=== PATIENT | male | born 1980 | race Hispanic/Latino ===

== ENCOUNTER 2021-01-24 09:22 | Emergency (ER) | payer OTHER ==
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
[2021-01-24 10:19] VITALS: TEMP 98.3
[2021-01-24 10:20] VITALS: BP 150/93; O2SAT 99
== END 2021-01-24 10:14 | disposition home or self-care (01) ==
LOC: ER 09:22
DX: R51.9 Headache, unspecified (principal); V86.55XA Driver of 3- or 4- wheeled all-terrain vehicle (ATV) injured in nontraffic accident, initial encounter
CPT/HCPCS: 70450; 72125; 99284